=== PATIENT | male | born 1980 | race Caucasian/White ===

== ENCOUNTER → 2019-11-09 07:39 | Outpatient (CLI) | payer BC, SELFPAY ==
--- NOTE | ~2019-11-09 | XR_ITS ---
XR hand RT 2V, XR wrist RT 2V 11/09/2019 08:56 (accession [id number]), 11/09/2019 08:54 (accession [id number]) Indication: Polyarticular joint pain Procedure: 2 views right hand and 2 views right wrist Comparison: No prior studies for comparison. Findings: Normal anatomic alignment. There is mild degenerative change of the first MCP joint. No ero sive changes. No fracture or malalignment. No significant soft tissue abnormality. 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 Reviewed, dictated and finalized at location B. 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
--- NOTE | ~2019-11-09 | XR_ITS ---
EXAMINATION: XR knee LT 2V DATE: 11/09/2019 08:55 INDICATION: Multiple joint pain. TECHNIQUE: 2 views of left knee were obtained. COMPARISON: None. FINDINGS: Bone alignment is normal. No fracture. There is mild osteoarthritis of lateral compartment characterized by a tiny marginal osteophyte. No knee joint effusion. IMPRESSION: 1. Mild left knee osteoarthritis. Reviewed, dictated and finalized at location A. TENANCE FITTER
--- NOTE | ~2019-11-09 | XR_ITS ---
XR hand LT 2V 11/09/2019 08:56 Indication: Polyarticular joint pain Procedure: 2 views left hand Comparison: No prior studies for comparison. Findings: Normal anatomic alignment. No significant joint space narrowing. No erosive changes. No fra cture or malalignment. No significant soft tissue abnormality. Impression: 1: No significant bone or joint abnormality. Reviewed, dictated and finalized at location B. OND MERCHANT Impression: 1: No significant bone or joint abnormality.
--- NOTE | ~2019-11-09 | XR_ITS ---
EXAMINATION: XR knee RT 2V DATE: 11/09/2019 08:55 INDICATION: Multiple joint pain. TECHNIQUE: 2 views of right knee were obtained. COMPARISON: None. FINDINGS: Bone alignment is normal. No fracture. Joint spaces are well maintained. There is no knee j oint effusion. IMPRESSION: 1. Normal right knee. Reviewed, dictated and finalized at location A. ERCIAL ENERGY AUDITOR IMPRESSION: 1. Normal right knee.
--- NOTE | ~2019-11-09 | XR_ITS ---
EXAMINATION: XR shoulder RT min 2V DATE: 11/09/2019 08:54 INDICATION: Multiple joint pain. TECHNIQUE: 2 views of right shoulder were obtained. COMPARISON: Right shoulder radiographs 01/25/2016 FINDINGS: Bone alignment is normal. No fracture. Joint spaces are well maintained. IMPRESSION: 1. Normal right shoulder. Reviewed, dictated and finalized at location A. ROOM MACHINIST IMPRESSION: 1. Normal right shoulder.
--- NOTE | ~2019-11-09 | XR_ITS ---
XR hip BI wo pelvis 11/09/2019 08:56 Indication: Polyarticular joint pain Procedure: 2 views right elbow Comparison: No prior studies for comparison. Findings: Normal anatomic alignment. There is mild osteoarthritis of the hips. No erosive changes. No fracture or malalignment. No significant soft tissue abnormality. Impression: 1: Mild osteoarthritis of the hips.. Reviewed, dictated and finalized at location B. MOBILE ACCESSORIES SALESPERSON Impression: 1: Mild osteoarthritis of the hips..
--- NOTE | ~2019-11-09 | XR_ITS ---
EXAMINATION: XR shoulder LT min 2V DATE: 11/09/2019 08:55 INDICATION: Multiple joint pain. TECHNIQUE: 2 views of left shoulder were obtained. COMPARISON: None. FINDINGS: Bone alignment is normal. No fracture. Joint spaces are well maintained. IMPRESSION: 1. Normal left shoulder. Reviewed, dictated and finalized at location A. ERY DIVISION CHIEF IMPRESSION: 1. Normal left shoulder.
--- NOTE | ~2019-11-09 | XR_ITS ---
EXAMINATION: XR elbow LT 2V DATE: 11/09/2019 08:55 INDICATION: Multiple joint pain. TECHNIQUE: 2 views of left elbow were obtained. COMPARISON: None. FINDINGS: Bone alignment is normal. No fracture. Joint spaces are well maintained. There is no elbow joint effusion. IMPRESSION: 1. Normal left elbow. Reviewed, dictated and finalized at location A. TY GENERAL COUNSEL IMPRESSION: 1. Normal left elbow.
--- NOTE | ~2019-11-09 | XR_ITS ---
EXAMINATION: XR wrist LT 2V DATE: 11/09/2019 08:54 INDICATION: Multiple joint pain. TECHNIQUE: 2 views of left wrist were obtained. COMPARISON: None. FINDINGS: Bone alignment is normal. No fracture. Joint spaces are well maintained. IMPRESSION: 1. Normal left wrist. Reviewed, dictated and finalized at location A. CURER IMPRESSION: 1. Normal left wrist.
--- NOTE | ~2019-11-09 | XR_ITS ---
XR elbow RT 2V 11/09/2019 08:55 Indication: Polyarticular joint pain Procedure: 2 views right elbow Comparison: No prior studies for comparison. Findings: Normal anatomic alignment. No significant joint space narrowing. No erosive changes. No fra cture or malalignment. No significant soft tissue abnormality. Impression: 1: No significant bone or joint abnormality. Reviewed, dictated and finalized at location B. PLAYER Impression: 1: No significant bone or joint abnormality.
== END ==
PROVIDERS: PCP Internal Medicine Rheumatology; Visit Provider Internal Medicine Rheumatology
DX: M16.0 Bilateral primary osteoarthritis of hip (principal); M19.041 Primary osteoarthritis, right hand; M19.031 Primary osteoarthritis, right wrist; M17.12 Unilateral primary osteoarthritis, left knee
CPT/HCPCS: 73030; 73070; 73100; 73120; 73521; 73560